=== PATIENT | female | born 1945 | race Two or more races ===

== ENCOUNTER 2018-09-11 12:29 | Outpatient (CLI) | payer OTHER | END 2018-09-11 12:35 | disposition home or self-care (01) | LOC: LAB 12:29 | DX: E11.9 Type 2 diabetes mellitus without complications (principal); E78.49 Other hyperlipidemia; I10 Essential (primary) hypertension; K62.5 Hemorrhage of anus and rectum; M81.8 Other osteoporosis without current pathological fracture; E21.0 Primary hyperparathyroidism; E03.8 Other specified hypothyroidism ==

== ENCOUNTER 2018-09-12 11:26 | Outpatient (CLI) | payer OTHER | END 2018-09-12 11:37 | disposition home or self-care (01) | LOC: LAB 11:26 | DX: K62.5 Hemorrhage of anus and rectum (principal) ==

== ENCOUNTER 2019-08-27 09:17 | Outpatient (CLI) | payer OTHER | END 2019-08-27 09:23 | disposition home or self-care (01) | LOC: LAB 09:17 | DX: E11.9 Type 2 diabetes mellitus without complications (principal); E78.49 Other hyperlipidemia; E55.9 Vitamin D deficiency, unspecified; E03.8 Other specified hypothyroidism; I10 Essential (primary) hypertension ==

== ENCOUNTER → 2019-09-16 | Outpatient (CLI) | payer OTHER | END | disposition home or self-care (01) | LOC: RAD 07:45 | DX: M54.2 Cervicalgia (principal) ==

== ENCOUNTER 2020-12-29 07:52 | Outpatient (CLI) | payer OTHER | END 2020-12-29 16:51 | disposition home or self-care (01) | LOC: LAB 07:52 | PROVIDERS: ATTEND Family Medicine Adult Medicine | DX: I11.9 Hypertensive heart disease without heart failure (principal); R73.01 Impaired fasting glucose ==

== ENCOUNTER 2021-02-10 14:26 | Outpatient (CLI) | payer OTHER | END 2021-02-10 14:28 | disposition home or self-care (01) | LOC: NUCLEAR 14:26 | PROVIDERS: ATTEND Family Medicine Adult Medicine | DX: M81.8 Other osteoporosis without current pathological fracture (principal) ==

== ENCOUNTER → 2021-06-16 | Outpatient (CLI) | payer OTHER | END | disposition home or self-care (01) | LOC: SONOGRAMA 09:10 | PROVIDERS: ATTEND Family Medicine Adult Medicine | DX: R10.0 Acute abdomen (principal) ==

== ENCOUNTER 2022-03-24 08:44 | Outpatient (CLI) | payer OTHER | END 2022-03-24 08:46 | disposition home or self-care (01) | LOC: MAMO-SONO 08:44 | PROVIDERS: ATTEND Family Medicine Adult Medicine | DX: N63.0 Unspecified lump in unspecified breast (principal); Z12.31 Encounter for screening mammogram for malignant neoplasm of breast ==

== ENCOUNTER 2022-03-24 10:26 | Outpatient (CLI) | payer OTHER | END 2022-03-24 10:51 | disposition home or self-care (01) | LOC: LAB 10:26 | PROVIDERS: ATTEND Family Medicine Adult Medicine | DX: I11.9 Hypertensive heart disease without heart failure (principal); H40.9 Unspecified glaucoma; E78.5 Hyperlipidemia, unspecified; E03.9 Hypothyroidism, unspecified ==